=== PATIENT | female | born 1990 | race Two or more races ===

== ENCOUNTER 2020-01-30 07:00 | Day surgery (SDC) | payer OTHER ==
[~2020-01-30 07:00] MED LIST: LABETALOL HCL200 MG PO; LABETALOL200 MG/200 PO; PRENATAL 19 TA1 EAC1 PO
== END 2020-01-30 13:00 | disposition home or self-care (01) ==
LOC: CIR.AMB 07:00
PROVIDERS: ATTEND Obstetrics & Gynecology
DX: O34.32 Maternal care for cervical incompetence, second trimester (principal); Z20.828 Contact with and (suspected) exposure to other viral communicable diseases

== ENCOUNTER 2020-05-28 11:04 | Outpatient (CLI) | payer OTHER | END 2020-05-28 12:05 | disposition home or self-care (01) | LOC: NST 11:04 | PROVIDERS: ATTEND Obstetrics & Gynecology Maternal & Fetal Medicine | DX: Z34.83 Encounter for supervision of other normal pregnancy, third trimester (principal) ==

== ENCOUNTER 2020-06-21 11:47 | Outpatient (CLI) | payer OTHER | END 2020-06-21 12:32 | disposition home or self-care (01) | LOC: NST 11:47 | PROVIDERS: ATTEND Obstetrics & Gynecology Maternal & Fetal Medicine | DX: O09.72 Supervision of high risk pregnancy due to social problems, second trimester (principal) ==

== ENCOUNTER 2020-06-29 19:40 | Inpatient (IN) | payer OTHER ==
[~2020-06-29] VITALS: Ht 165.1 cm; Wt 118.8 kg
[2020-06-29] MEDS ORDERED: LABETALOL HCL200 MG PO (20:25)
[2020-06-29] MEDS ORDERED: ADULT LOW DOSE81 M1 PO (20:25)
== END 2020-07-05 13:38 | disposition home or self-care (01) | DRG 785 ==
LOC: LDR 19:40 → OB/GYN 07-02 20:37
PROVIDERS: ADMIT Obstetrics & Gynecology; ATTEND Obstetrics & Gynecology
PROC: 4A1HXFZ Monitoring of Products of Conception, Cardiac Rhythm, External Approach (ICD-10-PCS; 2020-06-29)
PROC: 0UB70ZZ Excision of Bilateral Fallopian Tubes, Open Approach (ICD-10-PCS; 2020-07-02)
PROC: 10D00Z1 Extraction of Products of Conception, Low, Open Approach (ICD-10-PCS; principal; 2020-07-02 16:00)
DX: O14.94 Unspecified pre-eclampsia, complicating childbirth (principal); O13.4 Gestational [pregnancy-induced] hypertension without significant proteinuria, complicating childbirth; O24.429 Gestational diabetes mellitus in childbirth, unspecified control; Z30.2 Encounter for sterilization; Z3A.31 31 weeks gestation of pregnancy; Z37.0 Single live birth; Z20.822 Contact with and (suspected) exposure to COVID-19

== ENCOUNTER 2024-12-03 13:00 | Inpatient (IN) | payer OTHER ==
[~2024-12-03] VITALS: Ht 165.1 cm; Wt 119.3 kg
[2024-12-03 12:41] LABS: BASO % 1.0 % (0.1-1.2); EOS # 0.58 (0.04-0.54); EOS % 8.5 % (0.7-7.0); LYMPH # 2.31 (1.18-3.74); LYMPH % 33.8 % (19.3-53.1); MEAN PLATELET VOLUME 9.20 fl (9.4-12.4); MONO # 0.37 (0.24-0.82); MONO % 5.4 % (4.7-12.5); NEUT # 3.49 (1.56-6.13); NEUT % 51.0 % (34.0-71.1); RED CELL DISTRIBUTION WIDTH 14.2 % (11.6-14.4)
[~2024-12-03 13:00] MED LIST changes: +ADULT LOW DOSE81 M1 PO
[2024-12-03 13:02] LABS: INR 1.01
[2024-12-03 13:11] LABS: ALT/SGPT 25.0 U/L (12-78); AST/SGOT 15.0 U/L (15-37); BILIRUBIN TOTAL 0.69 mg/dL (0.3-1.2); BUN CREA RATIO 16.0 (7.0-25.0); CREATININE SERUM 0.69 mg/dL (0.55-1.02); GFR 96.27; GLOBULINA 3.6 G/DL (2.4-3.5); GLUCOSE FASTING 108.0 mg/dL (65-100); OSMOLALITY SERUM 281.0 MOSM/KG (275-295)
[2024-12-03] MEDS ORDERED: SUGAMMADEX SODIUM 200 MG/2 ML VIAL IV ONE ×2 (16:24→22:15)
[2024-12-03] MEDS ORDERED: ONDANSETRON HCL 2 MG/ML VIAL ONE (17:21)
[2024-12-03] MEDS ORDERED: MORPHINE SULFATE 4 MG/ML VIAL IV ONE ×2 (17:35→19:20)
[2024-12-03] MEDS ORDERED: MORPHINE SULFATE 4 MG/ML CARTRIDGE IV PRN (18:00)
[2024-12-03] MEDS ORDERED: RINGERS SOLUTION,LACTATED 1,000 ML IV PUSH SCH (18:00)
[2024-12-03 22:04] VITALS: BP 140/83
[2024-12-04 01:26] VITALS: BP 141/86
[2024-12-04] MEDS ORDERED: ENOXAPARIN SODIUM 40 MG/0.4 ML SYRINGE SUBCUTANEO SCH (09:00)
[2024-12-04] MEDS ORDERED: LOSARTAN POTASSIUM 100 MG TABLET PO SCH (09:00)
[2024-12-04 09:21] VITALS: BP 140/85
[2024-12-04 09:54] LABS: BASO % 0.2 % (0.1-1.2); EOS # 0.09 (0.04-0.54); EOS % 0.5 % (0.7-7.0); LYMPH # 2.05 (1.18-3.74); LYMPH % 12.0 % (19.3-53.1); MEAN PLATELET VOLUME 9.40 fl (9.4-12.4); MONO # 0.63 (0.24-0.82); MONO % 3.7 % (4.7-12.5); NEUT # 14.17 (1.56-6.13); NEUT % 83.0 % (34.0-71.1); RED CELL DISTRIBUTION WIDTH 14.3 % (11.6-14.4)
[2024-12-04] MEDS ORDERED: SIMETHICONE 125 MG CAPSULE PO SCH (12:00)
[2024-12-04 16:31] VITALS: BP 135/85
[2024-12-05] VITALS: BP 126/84
[2024-12-05] MEDS ORDERED: OxyCODONE HCL 5 MG TABLET (ROXICODONE) PO PRN (06:00)
[2024-12-05 08:47] VITALS: BP 135/84
[2024-12-05] MEDS ORDERED: IRON FUM,PS/FOLIC ACID/VITC/B3 1 CAP CAPSULE PO SCH (09:00)
[2024-12-05 16:46] VITALS: BP 140/70
[2024-12-06] VITALS: BP 136/85
[2024-12-06 08:00] VITALS: BP 147/87
== END 2024-12-06 15:28 | disposition home or self-care (01) | DRG 743 ==
LOC: OB/GYN 13:00 → O/R 13:00 → SURH 17:41 → OB/GYN 17:59
PROVIDERS: ADMIT Obstetrics & Gynecology; ATTEND Obstetrics & Gynecology
PROC: 0UT70ZZ Resection of Bilateral Fallopian Tubes, Open Approach (ICD-10-PCS; 2024-12-03)
PROC: 0DNW0ZZ Release Peritoneum, Open Approach (ICD-10-PCS; 2024-12-03)
PROC: 0UN20ZZ Release Bilateral Ovaries, Open Approach (ICD-10-PCS; 2024-12-03)
PROC: 0UT90ZZ Resection of Uterus, Open Approach (ICD-10-PCS; principal; 2024-12-03 17:30)
DX: N92.1 Excessive and frequent menstruation with irregular cycle (principal)

== ENCOUNTER 2024-12-13 09:45 | Emergency (ER) | payer OTHER ==
[~2024-12-13] VITALS: Ht 165.1 cm; Wt 119.3 kg
[2024-12-13] MEDS ORDERED: COZAAR100 MG PO (10:19)
[2024-12-13] MEDS ORDERED: FAMOtidine 10 MG/ML (4ML VIAL) IV PUSH ONE (10:45)
[2024-12-13] MEDS ORDERED: ACETAMINOPHEN 500 MG GEL..CAP PO ONE ×2 (10:45→10:49)
[2024-12-13] MEDS ORDERED: KETOROLAC TROMETHAMINE 30 MG VIAL IU ONE (10:45)
[2024-12-13] MEDS ORDERED: ONDANSETRON HCL 4 MG in 0.9 % SODIUM CHLORIDE 50 ML IV ONE (10:45)
[2024-12-13] MEDS ORDERED: 0.9 % SODIUM CHLORIDE 1,000 ML IV SCH (10:45)
[2024-12-13] MEDS ORDERED: KETOROLAC TROMETHAMINE 30 MG VIAL ONE (10:49)
[2024-12-13] MEDS ORDERED: FAMOTIDINE/PF 20 MG/2 ML VIAL ONE (10:49)
[2024-12-13] MEDS ORDERED: ONDANSETRON HCL 2 MG/ML VIAL ONE (11:20)
[2024-12-13 11:39] LABS: URINE APPEARANCE Clear; URINE BILIRRUBIN Negative (NEGATIVE); URINE BLOOD Negative; URINE COLOR Yellow; URINE GLUCOSE Negative (NEGATIVE); URINE KETONE Negative (NEGATIVE); URINE LEUKOCYTE Small; URINE NITRATE Negative; URINE PROTEIN Negative (NEGATIVE); URINE UROBILINOGEN 0.2 E.U./dl
[2024-12-13 11:45] LABS: URINE BACTERIA 803.9 uL (0.0-1933); URINE EPITHELIAL CELLS 19.5 uL (0.0-38.8); URINE RBC 4.1 uL (0.0-20.8); URINE WBC 7.3 uL (0.0-23.2)
[2024-12-13 11:50] LABS: URINE CAST 0.00 uL (0.0-1.40)
[2024-12-13 11:51] LABS: ALT/SGPT 19.0 U/L (12-78); AST/SGOT 8.0 U/L (15-37); BILIRUBIN TOTAL 0.51 mg/dL (0.3-1.2); BUN CREA RATIO 13.0 (7.0-25.0); CREATININE SERUM 0.67 mg/dL (0.55-1.02); GFR 99.59; GLOBULINA 4.0 G/DL (2.4-3.5); GLUCOSE FASTING 118.0 mg/dL (65-100); OSMOLALITY SERUM 285.0 MOSM/KG (275-295)
[2024-12-13 11:59] LABS: BASO % 0.9 % (0.1-1.2); EOS # 0.99 (0.04-0.54); EOS % 12.9 % (0.7-7.0); LYMPH # 1.51 (1.18-3.74); LYMPH % 19.7 % (19.3-53.1); MEAN PLATELET VOLUME 9.30 fl (9.4-12.4); MONO # 0.39 (0.24-0.82); MONO % 5.1 % (4.7-12.5); NEUT # 4.67 (1.56-6.13); NEUT % 60.7 % (34.0-71.1); RED CELL DISTRIBUTION WIDTH 15.3 % (11.6-14.4)
[2024-12-13] MEDS ORDERED: CEFTRIAXONE SODIUM 2,000 MG in 0.9 % SODIUM CHLORIDE 100 ML IV ONE (14:30)
[2024-12-13] MEDS ORDERED: CLEOCIN HCL300 MG PO (14:32)
[2024-12-13] MEDS ORDERED: PEPCID AC20 MG PO (14:32)
[2024-12-13] MEDS ORDERED: CEFTRIAXONE SODIUM 2,000 MG VIAL ONE (15:32)
== END 2024-12-13 15:50 | disposition home or self-care (01) ==
LOC: ER 09:45
PROVIDERS: General Practice
DX: O90.2 Hematoma of obstetric wound (principal); O86.09 Infection of obstetric surgical wound, other surgical site; Z91.040 Latex allergy status